=== PATIENT | male | born 1985 | race Caucasian/White ===

== ENCOUNTER 2018-10-06 17:32 | Emergency (ER) | payer OTHER ==
[~2018-10-06] VITALS: Ht 182.9 cm; Wt 106.4 kg
[~2018-10-06 17:32] MED LIST: FISH OIL1 IU PO; LUTEIN20 MG PO; VALTREX
[2018-10-06 17:38] VITALS: TEMP 96.9
[2018-10-06] MEDS ORDERED: MULTIPLE VITAMI1 CAP PO (17:55)
[2018-10-06 18:22] LABS: BASO # 0.1 (0.0-0.2); BASO % 0.8 % (0.0-2.0); EOS # 0.8 (0.0-0.7); EOS % 6.6 % (0-4.0); GRAN # 6.7 (1.4-6.5); GRAN % 57.2 % (42.2-75.2); HEMATOCRIT 51.8 % (42.0-52.0); HEMOGLOBIN 18.3 g/dl (13.5-18.0); LYMPH # 3.2 (1.2-3.4); LYMPH % 27.3 % (20.0-51.0); MEAN CELL VOLUME 93 fl (80.0-100.0); MEAN CORPUSCULAR HEMOGLOBIN 33 pg (27.0-31.0); MEAN CORPUSCULAR HGB CONC 35 g/dl (33.0-37.0); MEAN PLATELET VOLUME 9.8 fl (7.4-10.4); MONO # 0.9 (0.1-0.6); MONO % 7.8 % (1.7-9.3); PLATELET COUNT 266 K/mm3 (130-400); RED BLOOD COUNT 5.59 M/mm3 (4.20-5.60); REDCELL DISTRIBUTION WIDTH-CV 12.4 % (11.5-14.5)
[2018-10-06 18:28] LABS: INR 0.9 (0.8-3.0); PROTHROMBIN TIME 10.5 SECONDS (9.7-12.8)
[2018-10-06 18:31] LABS: PARTIAL THROMBOPLASTIN TIME 29.7 SECONDS (26.0-37.0)
[2018-10-06 18:32] LABS: ALANINE AMINOTRANSFERASE 59 U/L (21-72); ALBUMIN 4.3 gm/dL (3.5-5.0); ALKALINE PHOSPHATASE 96 U/L (50-136); ANION GAP 11 mmol/L (7-16); AST,SGOT 43 U/L (15-37); BILIRUBIN,TOTAL 0.6 mg/dL (0.0-1.0); BLOOD UREA NITROGEN 13 mg/dL (9-20); C-REACTIVE PROTEIN 0.5 mg/dL (0.0-0.9); CALCIUM 9.7 mg/dL (8.4-10.2); CARBON DIOXIDE 23 mmol/L (22-30); CHLORIDE 107 mmol/L (98-107); CREATININE, serum 0.78 (0.66-1.25); GLUCOSE 118 mg/dL (74-106); POTASSIUM 4.1 mmol/L (3.4-5.0); SODIUM 141 mmol/L (137-145); TOTAL PROTEIN 7.9 gm/dL (6.4-8.2)
[2018-10-06 18:36] LABS: D-DIMER < 200.00 ng/mLDDu (200-230)
[2018-10-06 18:40] LABS: TROPONIN-I < 0.012 ng/mL (0.000-0.035)
[2018-10-06 20:24] VITALS: BP 131/84; PULSE 77
== END 2018-10-06 20:24 | disposition home or self-care (01) ==
LOC: COL.ER 17:32
PROVIDERS: Family Medicine
DX: R07.89 Other chest pain (principal); F17.210 Nicotine dependence, cigarettes, uncomplicated

== ENCOUNTER → 2018-11-26 | Outpatient (CLI) | payer OTHER ==
[~2018-11-26] MED LIST changes: +MULTIPLE VITAMI1 CAP PO
== END ==
LOC: COL.RAD 12:34
DX: N50.89 Other specified disorders of the male genital organs (principal); N50.3 Cyst of epididymis

== ENCOUNTER → 2018-11-29 | Outpatient (CLI) | payer OTHER | LOC: COL.RAD 10:05 | DX: R94.5 Abnormal results of liver function studies (principal) ==

== ENCOUNTER → 2021-06-11 | Outpatient (CLI) | payer BC | LOC: COL.RAD 10:40 | DX: I86.1 Scrotal varices (principal) ==